=== PATIENT | male | born 1950 | race Caucasian/White ===

== ENCOUNTER 2018-08-30 18:14 | Observation (INO) | payer MEDICARE, BC ==
[~2018-08-30] VITALS: Ht 177.8 cm; Wt 91.1 kg
[~2018-08-30 18:14] MED LIST: LOTREL 5 MG-101 CAP PO; RAPAFLO4 MG PO
[2018-08-30 18:33] VITALS: BP 122/60; PULSE 74; TEMP 98.1
[2018-08-30] MEDS ORDERED: HCTZ 25MG TAB25 MG PO (19:36)
[2018-08-30] MEDS ORDERED: MULTI VITAMINS1 TAB PO (19:37)
[2018-08-30] MEDS ORDERED: LUTEIN20 M1 PO (19:50)
--- NOTE | 2018-08-30 20:24 | NUR ---
PT ADMITTED AFTER SOME DIFFICULTY WITH CATHETER. NEW CATHETER INSERTED BY DAY SHIFT RN. PAEZ APPEARS TO BE PATENT CLEAR, YELLOW URINE IS IN TUBING/BAG. SEE 5 PAGE ADMISSION ASSESSMENT.
[2018-08-30 23:14] VITALS: BP 117/64; PULSE 71; TEMP 97.9
[2018-08-31 04:00] VITALS: BP 118/67; PULSE 64; TEMP 97.8
[2018-08-31 07:17] VITALS: BP 117/72; PULSE 63; TEMP 97.3
--- NOTE | 2018-08-31 08:00 | NUR ---
PATIENT IS A&O. VSS. DENIES PAIN. NOTED MOD AMOUNTS OF CLEAR YELLOW URINE TO DD PAEZ. NO CLOTS NOTED. HEAD TO TOE ASSESSMENT WNL. PATIENT HOPING TO DISCHARGE HOME LATER TODAY.
--- NOTE | 2018-08-31 11:55 | NUR ---
PATIENT IS DISCHARGING HOME VIA WHEELCHAIR TO PERSONAL VEHICLE WITH . GAVE DISCHARGE INSTRUCTIONS, GRADUATED CYLINDER, PAEZ INSTRUCTIONS AND FOLLOW UP APT WITH TOMORROW AM. ANSWERED ALL QUESTIONS/CONCERNS. DC'D IV AND COVERED SITE WITH GAUZE & COBAN. PATIENT DRESSED AND READY FOR DISCHARGE.
== END 2018-08-31 11:55 | disposition home or self-care (01) ==
LOC: SURG 18:14
PROVIDERS: ADMIT Urology
DX: N40.0 Benign prostatic hyperplasia without lower urinary tract symptoms (principal); R33.9 Retention of urine, unspecified; I10 Essential (primary) hypertension; Z79.899 Other long term (current) drug therapy
CPT/HCPCS: G0378; G0379; J7030